=== PATIENT | male | born 2000 | race Caucasian/White ===

== ENCOUNTER 2025-06-14 11:41 | Emergency (ER) | payer OTHER, SELFPAY ==
[2025-06-14 11:45] VITALS: BP 131/63; PULSE 96; RESP 20; TEMP 37.1; O2SAT 98
--- NOTE | 2025-06-14 11:46 | ED.DENTAL ---
HPI - Dental/Oral General Chief complaint: Dental/Oral Stated complaint: face swollen Time Seen by Provider: 06/14/25 11:45 Source: patient Mode of arrival: ambulatory Limitations: no limitations History of Present Illness HPI Narrative: Campbell is a 25-year-old male patient presenting to the clinic today with complaints of facial swelling x1 day. He reports he has right upper dental pain and swelling. States he has poor teeth and thinks he has an infection. Has swelling and redness over the right maxilla/cheek extending over the lower periorbital area. No fever, chills, or bodyaches. Has taken Aleve for his symptoms. Related Data Allergies Allergy/AdvReac Type Severity Reaction Status Date / Time No Known Allergies Allergy Verified 06/14/25 11:58 Review of Systems Review of Systems: Pertinent positives per HPI. Patient denies any fever, chills, rash, headache, visual changes, dizziness, cough, runny nose, sore throat, shortness of breath, chest pain, palpitations, nausea, vomiting, diarrhea, constipation, abdominal pain, or any urinary issues. PMFSH Comments At the time of my signature, I reviewed and agree with the nursing past medical, surgical, social, and family history. There is no relevant family history pertinent to the patient complaint. Exam Narrative: General: Well-developed, well nourished, in no apparent distress Head: Normocephalic, atraumatic Eyes: Pupils equally round and reactive to light bilaterally, EOM intact, sclera and conjunctive clear, no discharge, lids normal Ears: TMs intact and clear, ear canals clear, no drainage, grossly hearing normal. Nose: Nares patent, no discharge, no inflammation, no sinus tenderness. Mouth: Oropharynx without lesions or masses, MMM. Dental fractures/decay with infection to the right upper 3,2,1 of the right upper maxilla with swelling and redness to the maxilla/cheek extending to the right lower periorbital area, area is tender to palpation without palpable abscess or induration. Neck: Supple, trachea midline, no enlargement of anterior or posterior cervical nodes, no thyroid masses or goiter palpable. Cardio: Regular rate and rhythm, s1 and s2 normal, no murmur appreciated. Resp: Clear to auscultation bilaterally anteriorly and posteriorly, no rhonchi, rales, wheezing or rubs Course Course Emergency Course: Portions of this record may have been created with voice recognition software. Level of Care: Express Care Visit Vital Signs Vital signs: Vital Signs Temperature 37.1 C 06/14/25 11:45 Pulse Rate 96 06/14/25 11:45 Respiratory Rate 20 06/14/25 11:45 Blood Pressure 131/63 06/14/25 11:45 Pulse Oximetry 98 06/14/25 11:45 Oxygen Delivery Room Air 06/14/25 11:45 Temperature 37.1 C 06/14/25 11:45 Pulse Rate 96 06/14/25 11:45 Respiratory Rate 20 06/14/25 11:45 Blood Pressure 131/63 06/14/25 11:45 Pulse Oximetry 98 06/14/25 11:45 Oxygen Delivery Room Air 06/14/25 11:45 Vital signs reviewed MDM - Dental/Oral MDM Narrative Medical decision making narrative: At the time of visit patient is resting comfortably on the exam table. Patient appears to be nontoxic. Complaints of facial swelling x1 day. He reports he has right upper dental pain and swelling. States he has poor teeth and thinks he has an infection. Has swelling and redness over the right maxilla/cheek extending over the lower periorbital area. No fever, chills, or body aches. Took Aleve yesterday for his symptoms. On exam patient has dental infection to the right 3rd 4th and 5th molar of the right upper maxilla with swelling and redness to the maxilla/cheek extending to the right lower periorbital area, area is tender to palpation without palpable abscess or induration. Rocephin 1 g IM ordered. Medications: Rocephin 1 g IM mixed with lidocaine given in the clinic today Plan: I suspect patient has a dental infection with some early cellulitis. Rocephin 1 g IM given in the clinic today and prescription for Augmentin was sent to the pharmacy. Recommend follow-up with dentist as soon as possible. Go to the emergency room if symptoms worsen. Supportive measures were discussed with the patient and they voiced understanding discharge instructions and agrees to treatment plan. Return precautions reviewed Differential Diagnosis Differential diagnosis: Likely gingival abscess, dental caries, toothache, dental abscess, fracture of tooth, aphthous ulcer and other (Periorbital cellulitis) Discharge Plan Discharge Clinical Impression: Dental infection Patient Disposition: Home Condition: Stable Instructions: Antibiotic Form, Dental Abscess (ED) Additional Instructions: Offered Rocephin injection in the clinic today and patient declined. Take medications as prescribed-Augmentin Increase fluids and stay well hydrated May take Tylenol/Motrin as needed for pain or fever May apply Orajel to the affected area to help alleviate pain May apply warm or cool compress to the affected area to help alleviate pain Follow-up with your dentist as soon as possible Go to the emergency room if symptoms worsen-fever not controlled by Tylenol or Motrin, increase in pain, increase in swelling, increase in redness, or streaking Patient Language: Lithuanian Prescriptions: New amoxicillin-pot clavulanate 875-125 mg tablet 1 tablet PO Q12H 10 Days Qty: 20 0RF Follow-up/Referrals: PHYSICIAN,CLIENT CARE REPRESENTATIVE [Primary Care Provider, Internal Medicine] Time of Disposition: 12:01 Quality NIHSS Nursing Documentation ED NIHSS nursing documentation: reviewed/agree
--- OUTSIDE RECORDS SUMMARY | 2025-06-14 11:58 | XMS_ITS | Clinical Summary ---
Author Organization [facility] Address [address] [place] [address] Phone Care Team Providers Care Supervisor Telephone Clerks Name Role Phone Unavailable Primary Care Provider Unavailabl e Allergies No known active allergies Medications No known medications Encounters Date Type Department Care Team Description 06/08/2025 External Device Data [facility] ABSTRACTION Provider, Abstract 06/08/2025 External Device Data [facility] Provider, Abstract 05/25/2025 External Device Data [facility] Provider, Abstract 05/11/2025 External Device Data [facility] Provider, Abstract 05/04/2025 External Device Data [facility] Provider, Abstract 05/04/2025 External Device Data [facility]STRACTION Provider, Abstract 04/21/2025 External Device Data [facility]CTION Provider, Abstract 04/20/2025 External Device Data [facility]STRACTION Provider, Abstract 04/06/2025 External Device Data [facility] ABSTRACTION Provider, Abstract 03/24/2025 External Device Data [facility]STRACTION Provider, Abstract 03/23/2025 External Device Data [facility] ABSTRACTION Provider, Abstract 03/23/2025 External Device Data [facility] ABSTRACTION Provider, Abstract from Last 3 Months Immunizations Immunization Administration Dates Next Due (ADACEL/BOOSTRIX)(10 YR UP) TDAP VACCINE, 0.5ML, IM 11/20/2024 Social History Tobacco Use Types Packs/Day Years Used Date Smoking Tobacco: Never Tobacco Cessation:Counseling Given: Not Answered Alcohol Use Standard Drinks/Week Comments Never 0 (1 standard drink = 0.6 oz pur e alcohol) Feeling Safe Answer Date Recorded Are you in a relationship wi th someone who hurts you emotionally and/or physically? 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98 11/20/2024 1:21 PM COMPLIANCE ASSISTANT Plan of Treatment Health Maintenance Due Date Last Done Comments INFLUENZA VACCINE (#1) 2025 6, 07/04/2015, 06/29/2014, Additional history exists DTAP/TDAP/TD VACCINES (9 - T d or Tdap) 11/20/2034 11/20/2024, 11/10/2017, 06/08/2009, Additional history exists HEPATITIS B VACCINES Completed 02/15/2000, 1999, 1999 HPV VACCINES Completed 07/24/2012, 03/07, 01/22/2012 Insurance RX [employer] (INTERNAL) [facility] MEDICAID
--- OUTSIDE RECORDS SUMMARY | 2025-06-14 11:58 | XMS_ITS | Clinical Summary ---
Author Organization [facility] Address [address] [place] [address] Phone Care Team Providers Care Collection Administrator Name Role Phone Provider, None Primary Care Provider Unavailabl e Allergies No known active allergies Medications [place]-3 Fatty Acids (OMEGA 3 PO) Take 32 mg by mouth daily. Active omeprazole (PRILOSEC) 20 MG CAPSULE DELAYED RELEASE Take 1 Cap by mouth daily. 90 Cap 3 01/27/2019 Active traMADol (ULTRAM) 50 MG Tablet Take 1 Tab by mouth every 6 hours as needed for Moderate or more severe pain. 10 Tab 03/09/2019 Active naproxen (NAPROSYN) 500 MG Tablet Take 1 Tablet by mouth 2 times daily as needed for Moderate or more severe pain. 20 Tablet 05/08/2022 Active Active Problems No known active problems Immunizations Immunization Administration Dates Next Due [id number] liz MCV4, Unspecif ied Formulation 01/08/2011 DTAP VACCINE 12/21/2003, 0,1999,09/15,1999 Hepatitis A Vaccine, Pediatric/adolescent, 2 Dose Schedule 08/08/2004,05/13/2003 Hepatitis A, Pediatric, Unsp ecified Formulation 02/07/2001 Hepatitis B Vaccine, Pediatric/adolescent 02/15/2000,1999,1999 Hib Vaccine,unspecified Formulation 09/05/2000,1 11/16/1998,1999 Hpv, Unspecified Formulation 07/24/2012,03/24/20 12,01/22/2012 Inactivated Polio Vaccine 12/21/2003,,1999,07/14 Influenza Vaccine 07/05/2011,09/09/2008 Influenza Vaccine, Quadrivalent, PF 06/07,07/04/2015,06/29/2014,07/14 Influenza Vaccine,unspecifie d Formulation 07/02/2012,07/12/2010 Influenza, high-dose, trivalent, PF 09/23/2009 MMR Vaccine 12/21/2003,05/16/2000 Meningococcal Group B OMV 06/22/2016,05/22/2016 Meningococcal MCV4O 06/21/2015 Pneumococcal Vaccine Peds - 7 Valent 02/07/2001 TDAP Vaccine 06/08/2009 Td (Adult) 11/10/2017 Varicella Vaccine Live 12/09/2007,05/16/2000 Family History Medical History Relation Name Comments High Cholesterol Brother High Cholesterol Father High Cholesterol Mother High Cholesterol Sister Relation Name Status Comments Brother Alive Father Alive Mother Alive Sister Alive Social History Tobacco Use Types Packs/Day Years Used Date Smoking Tobacco: Former Smokeless Tobacco: Current Tobacco Cessation:Counseling Given: No Alcohol Use Standard Drinks/Week Comments Never 0 (1 standard drink = 0.6 oz pur e alcohol) Sexually Active Control Partners Comments Yes Sex and Gender Information Value Date Recorded Sex Assigned at Not on file Legal Sex Male 10:04 PM CDT Gender Identity Not on file Sexual Orientation Not on file Last Filed Vital Signs Vital Sign Reading Time Taken Comments Blood Pressure 118/68 05/08/2022 5:06 AM CDT Pulse 92 05/08/2022 5:06 AM CDT Temperature 36.4 C (97.5 F) 05/08/2022 5:06 AM CDT Respiratory Rate 20 05/08/2022 5:06 AM CDT Oxygen Saturation 100% 05/08/2022 5:06 AM CDT Inhaled Oxygen Concentration - - Weight 54.4 kg (120 lb) 05/08/2022 5:06 AM CDT Height 167.6 cm (5' 6) 05/08/2022 5:06 AM CDT Body Mass Index 19.37 05/08/2022 5:06 AM CDT Plan of Treatment Health Maintenance Due Date Last Done Comments Hepatitis C Virus (HCV) Screening 1999 Influenza Immunization (#1) 06/07/202506/07, 07/04/2015, 06/29/2014, Additional history exists SARS-COV-2 Immunization (2023- season) 2025 DTaP/Tdap/Td Immunization (8 - Td or Tdap) 11/10/2027 11/10/2017, 11/10/2017, 06/08/2009, Additional history exists Respiratory Syncytial Virus (RSV) Immunization (Adult) (1 - 1-dose 75+ series) 2074 Hepatitis B Immunization Completed 000, 1999, 1999 Pneumococcal Immunization Combined Aged Out 02/07/2001 No longer eligible based on patient's age to complete this topic Human Papillomavirus (HPV) Immunization Completed 07/24/2012, 03/24/2012, 01/22/2012 Meningococcal Immunization (ACWY) Completed 06/21/2015, 01/08/2011 Meningococcal B Immunization Discontinued 06/22/2016, 05/22/2016 Rotavirus Immunization Aged Out No lo nger eligible based on patient's age to complete this topic Insurance MEDICAID AETNA [facility] Care Teams Collection Administrator Relationship Specialty Start Date End Date Provider, None [place] PCP - General 11/06/21
--- OUTSIDE RECORDS SUMMARY | 2025-06-14 11:58 | XMS_ITS | Clinical Summary ---
Author Organization [facility] Address [address] [place] [address] Care Team Providers Care Trade Facilitator Name Role Phone Saul Schneider MD Unavailable [phone] No, Physician Primary Care Provider [phone] Allergies No known active allergies Medications omega-3 fatty acids-fish oil 300-1,000 mg capsule Take 32 mg by mouth. Active omeprazole (PriLOSEC) 40 mg capsule TAKE 1 CAPSULE BY MOUTH EVERY MORNING THE FIRST THING BEFORE EATING 30 capsule 8 Active ondansetron ODT (ZOFRAN-ODT) 8 mg disintegrating tablet Dissolve 1 tablet oral every 4 hours as needed for nausea or vomiting. 12 tablet 8 Active dicyclomine (BENTYL) 20 mg tablet Take 1 tablet (20 mg total) by mouth 2 (two) times a day. 20 tablet 8 Active Active Problems No known active problems Immunizations Immunization Administration Dates Next Due Td, adsorbed 11/10/2017 Surgical History Surgery Date Site/Laterality Comments MANDIBLE SURGERY Medical History Medical History Date Comments GERD (gastroesophageal reflux disease) Acid reflux Adhd Family History Medical History Relation Name Comments Cancer Other 1 Family history of Cancer; Diabetes Other 2 Family history of Diabetes mellitus; Hypertension Other 3 Family history of Hypertension; Relation Name Status Comments Other 1 Other 2 Other 3 Social History Tobacco Use Types Packs/Day Years Used Date Smoking Tobacco: Every Day Smokeless Tobacco: Current Alcohol Use Standard Drinks/Week Comments No 0 (1 standard drink = 0.6 oz pur e alcohol) Sex and Gender Information Value Date Recorded Sex Assigned at Not on file Legal Sex Male 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 Gender Identity Not on file Sexual Orientation Not on file Obstetrics History Last Filed Vital Signs Vital Sign Reading Time Taken Comments Blood Pressure 116/83 07/17/2021 5:33 AM CDT Pulse 89 07/17/2021 5:33 AM CDT Temperature 37 C (98.6 F) 07/17/2021 5:33 AM CDT Respiratory Rate 18 07/17/2021 5:33 AM CDT Oxygen Saturation 100% 07/17/2021 5:33 AM CDT Inhaled Oxygen Concentration - - Weight 49.4 kg (109 lb) 07/25/2020 4:29 PM CDT Height 167.6 cm (5' 6) 07/25/2020 4:29 PM CDT Body Mass Index 17.59 07/25/2020 4:29 PM CDT Plan of Treatment Not on file Insurance [facility] [employer] [facility] AETNA BETTER [facility] [place] Advance Directives For more information, please contact: [phone] Documents on File Type Date Recorded Patient Edge Burnisher Expl anation ADVANCE DIRECTIVE 04/22/2019 6:59 PM Care Teams Trade Facilitator Relationship Specialty Start Date End Date No, Physician PCP - General 07/25/20 Saul Schneider MD 01/31/17
[2025-06-14] MEDS: cefTRIAXone 1 GM, LIDOCAINE 1% LOCAL INJ 2.1 ML IM (12:20)
== END 2025-06-14 12:58 | disposition home or self-care (01) ==
PROVIDERS: Emergency Provider Nurse Practitioner Family
DX: K04.7 Periapical abscess without sinus (principal)
CPT/HCPCS: 96372; 99203; G0463; J0696; J2003